=== PATIENT | male | born 1990 | race African-American/Black ===

== ENCOUNTER 2016-11-11 01:54 | Emergency (ER) | payer SELFPAY ==
[~2016-11-11] VITALS: Ht 177.8 cm; Wt 93.0 kg
[2016-11-11 01:56] VITALS: BP 148/91; PULSE 70; RESP 16; TEMP 98.7; O2SAT 100
[2016-11-11] MEDS ORDERED: AMOX500C PO (02:28)
[2016-11-11] MEDS ORDERED: DICL50TA3 PO (02:28)
[2016-11-11] MEDS ORDERED: ACETAMINOPHEN/HYDROcodone 325 MG/5 MG TAB PO ONE (02:30)
[2016-11-11] MEDS ORDERED: IBUPROFEN 800 MG TAB PO ONE (02:30)
[2016-11-11] MEDS ORDERED: AMOXICILLIN (TRIHYDRATE) 500 MG CAP PO ONE (02:30)
--- NOTE | 2016-11-11 02:31 | PD ---
HPI Chief Complaint: Oral / Dental Pain or Problem Time Seen by Provider: 02:28 Travel History International Travel<30 days: No Contact w/Intl Traveler<30days: No Traveled to known affect area: No History of Present Illness HPI 26-year-old black male presents emergency Department with complaints of dental pain. He states that he had pain in his left lower and upper jaw since yesterday. He cannot identify which tooth is bothering him. He denies any fever chills. No facial swelling. No swelling of the floor the mouth. Pain is moderate. No alleviating or exacerbating activities. [facility] Past Medical History Medical History: Denies Significant Hx Tetanus Vaccination: < 5 Years Past Surgical History Surgical History: No Previous Surgery Social History Alcohol Use: No Tobacco Use: No Allergies-Medications (Allergen,Severity, Reaction): Coded Allergies: No Known Allergies (Unverified , 11/11/16) Reported Meds & Prescriptions Reported Meds & Active Scripts Active No Active Prescriptions or Reported Medications Review of Systems Except as stated in HPI: all other systems reviewed are Neg Physical Exam Narrative GENERAL: Well-developed, well-nourished in no acute distress. Nontoxic appearing. HEAD: Normocephalic, atraumatic. EYES: Pupils equal round and reactive. Extraocular motions intact. No scleral icterus. No injection or drainage. ENT: TMs clear without erythema. The external auditory canals clear. Nose: clear . Posterior pharynx is pink and moist. No tonsillar edema or exudate. Uvula midline. Airway patent. Patient has an impacted tooth #17. #16 is crooked. I do not see any obvious gingival erythema or edema. No gross dental cavities. NECK: Trachea midline.Supple, nontender, moves head freely. No central bony tenderness or spasm. CARDIOVASCULAR: Regular rate and rhythm without murmurs, gallops, or rubs. RESPIRATORY: Clear to auscultation. Breath sounds equal bilaterally. No wheezes , rales, or rhonchi. GASTROINTESTINAL: Abdomen soft, non-tender, nondistended. No hepato-splenomegaly , or palpable masses. No guarding. EXTREMITIES: No clubbing, cyanosis, or edema. No joint tenderness, effusion, or edema noted. BACK: Nontender without deformity or crepitance. No flank tenderness. Data Data Last Documented VS Vital Signs Date Time Temp Pulse Resp B/P Pulse Ox O2 Delivery O2 Flow Rate FiO2 11/11/16 01:56 98.7 70 16 148/91 100 Room Air Orders Amoxicillin (Trimox) (11/11/16 02:30) Ibuprofen (Motrin) (11/11/16 02:30) Acetamin-Hydrocod 325-5 Mg (Mccoy 5-325 (11/11/16 02:30) MDM Medical Decision Making Medical Screen Exam Complete: Yes Emergency Medical Condition: Yes Medical Record Reviewed: Yes Differential Diagnosis MDM: Moderate Differential diagnoses: Dental abscess, dental caries, osteitis, cellulitis Narrative Course Patient's given Amoxil 500, Lortab 5, and Motrin 800 mg by mouth. This is dentalgia, impacted wisdom tooth Diagnosis Primary Impression: Dentalgia Additional Impression: impacted wisdom tooth Patient Instructions: Narcotic given in the ED, General Instructions Additional Instructions: Rest. Saltwater gargles. Cedar oil on cotton balls. Amoxicillin and diclofenac follow-up with a dentist as soon as possible. And return to the ER if any problems. Med/Other Pt SpecificInfo: Prescription(s) given Scripts Diclofenac Sodium DR 50 Mg Tabdr50 Mg PO TID #21 TAB Prov:Iza Lui MD 11/11/16 Amoxicillin 500 Mg [id number] Mg PO TID #30 CAP Prov:Iza Lui MD 11/11/16 Disposition: 01 DISCHARGE HOME Condition: Brennan Bishop Nov 11, 2016 02:31
== END 2016-11-11 02:51 | disposition home or self-care (01) ==
LOC: NEPD 01:54
DX: K08.89 Other specified disorders of teeth and supporting structures (principal); K01.1 Impacted teeth
CPT/HCPCS: 99284